=== PATIENT | female | born 1980 | race Caucasian/White ===

== ENCOUNTER 2021-02-17 20:20 | Emergency (ER) | payer BC ==
[~2021-02-17] VITALS: Ht 162.6 cm; Wt 63.6 kg
[2021-02-17 20:57] VITALS: Ht 162.6 cm; Wt 63.6 kg
[2021-02-17] MEDS ORDERED: ALBUTEROL SULF8.5 GM INH (20:59)
[2021-02-17] MEDS ORDERED: LOPRESSOR25 MG (20:59)
[2021-02-17 21:51] LABS: EOSINOPHILS 0.2 % (0-7); HEMATOCRIT 39.9 % (36.0-48.0); HEMOGLOBIN 13.4 g/dL (12-16); LYMPHOCYTES 32.6 % (15-50); MCH 32.8 pg (26.0-34.0); MCHC 33.6 g/dL (31.0-37.0); MCV 97.7 fL (80.0-100.0); MEAN PLATELET VOLUME 8.6 fL (7.4-10.4); MONOCYTES 9.3 % (2-11); NEUTROPHILS 56.9 % (40-80); PLATELET COUNT 282 10x3/uL (130-400); RBC 4.09 10x6/uL (4.00-5.40); RDW 12.9 % (11.5-14.5); WBC 7.4 10x3/uL (4.8-10.8)
[2021-02-17 22:13] LABS: ALKALINE PHOSPHATASE 65 U/L (30-120); ALT (SGPT) 45 U/L (10-68); BILIRUBIN - TOTAL 0.49 mg/dL (0.2-1.3); CALCIUM 8.8 mg/dL (8.5-10.1); CARBON DIOXIDE 22.2 mmol/L (21.0-32.0); CREATINE KINASE 130 UL (21-215); CREATININE - SERUM 0.7 mg/dL (0.6-1.3); GLUCOSE 89 mg/dL (74-106); LIPASE 458 U/L (73-393); MAGNESIUM - SERUM 2.2 mg/dL (1.8-2.4); PROTEIN - SERUM 7.7 g/dL (6.4-8.2); THYROID STIMULATING HORMONE 1.07 uIU/mL (0.36-3.74); UREA NITROGEN 17 mg/dL (7-18); eGFR NON AFRICAN AMERICAN > 90 mL/min (90-120)
[2021-02-17 22:29] LABS: CALC OSMOLALITY 266 mosm/kg (275-300); CHLORIDE - SERUM 99 mmol/L (98-107); POTASSIUM - SERUM 4.2 mmol/L (3.5-5.1); SODIUM 133 mmol/L (136-145)
[2021-02-17 22:40] LABS: UDS - AMPHET POSITIVE QUAL (NEGATIVE); UDS - BARB NEGATIVE QUAL (NEGATIVE); UDS - BENZO POSITIVE QUAL (NEGATIVE); UDS - COCAINE NEGATIVE QUAL (NEGATIVE); UDS - OPIATE NEGATIVE QUAL (NEGATIVE); UDS - PCP NEGATIVE QUAL (NEGATIVE); UDS - THC POSITIVE QUAL (NEGATIVE)
[2021-02-17 22:52] LABS: BACTERIA FEW HPF (<MOD); BILIRUBIN NEGATIVE (NEGATIVE); GRANULAR CAST 31 LPF (0-1); KETONE TRACE mg/dL (< 1+); NITRITE NEGATIVE (NEGATIVE); PH 5.5 (5.0-8.0); SQUAMOUS EPITHELIAL 11 HPF (0-4); UROBILINOGEN 2 mg/dL (< 2); WHITE CELLS - URINE 8 HPF (0-4)
[2021-02-17] MEDS ORDERED: OMNICEF300 MG PO (23:19)
[2021-02-17 23:29] VITALS: BP 130/72
== END 2021-02-17 23:23 | disposition home or self-care (01) ==
LOC: D.ER 20:20
PROVIDERS: Family Medicine
DX: G89.29 Other chronic pain (principal); N39.0 Urinary tract infection, site not specified; I10 Essential (primary) hypertension; J45.909 Unspecified asthma, uncomplicated; M79.7 Fibromyalgia; Z72.0 Tobacco use